=== PATIENT | male | born 1950 | race Caucasian/White ===

== ENCOUNTER 2018-12-16 12:45 | Observation (INO) | payer OTHER ==
[2018-12-16 14:11] LABS: BASO % 0.4 % (0-2.0); EOS % 0.6 % (0-4.5); HEMATOCRIT 42.9 % (35.4-49); HEMOGLOBIN 15.4 GM/dL (11.7-16.9); LYMPH % 34.7 % (8-40); MCH 32.6 pg (25.7-33.7); MCHC 35.9 g/dl (32.0-35.9); MEAN CELL VOLUME 90.8 fl (80-96); MEAN PLT VOLUME 8.4 fl (7.5-11.1); MONO % 7.1 % (3.8-10.2); NEUT % 57.2 % (42.8-82.8); PLATELET COUNT 155 K/MM3 (134-434); RBC 4.72 M/mm3 (4.00-5.60); RDW 12.8 % (11.9-15.9); WHITE BLOOD COUNT 5.2 K/mm3 (4.0-10.0)
[2018-12-16 14:25] LABS: INR 1.01 (0.83-1.09); PROTHROMBIN TIME (PATIENT) 11.9 SEC (9.7-13.0)
[2018-12-16 14:28] LABS: ACTIVATED PTT 33.8 SECONDS (25.2-36.5)
[2018-12-16 14:41] LABS: ALBUMIN 4.1 g/dl (3.4-5.0); ALK PHOS 77 U/L (45-117); ANION GAP 5 MMOL/L (8-16); BILIRUBIN,TOTAL 0.4 mg/dL (0.2-1); BLOOD UREA NITROGEN 13 mg/dL (7-18); CALCIUM 8.5 mg/dL (8.5-10.1); CHLORIDE 106 mmol/L (98-107); CO2 28 mmol/L (21-32); CREATININE 0.8 mg/dL (0.55-1.3); GLUCOSE,RANDOM 96 mg/dL (74-106); N-TERMINAL BNP 35.1 pg/ml (5-125); SGOT/AST 18 U/L (15-37); SGPT/ALT 35 U/L (13-61); SODIUM 139 mmol/L (136-145)
[2018-12-16] MEDS ORDERED: ASPIRIN 81 MG CHEWABLE TABLETS PO ONE (16:16)
--- NOTE | 2018-12-16 16:20 | PDOC ---
Documentation entered by Yisel Rosa SCRIBE, acting as scribe for Leigh Ann Sanders MD. History of Present Illness - General Stated Complaint: LEFT SIDE WEAKNESS / PAIN Time Seen by Provider: 12/16/18 13:22 History Source: Patient Exam Limitations: No Limitations - History of Present Illness Initial Comments: 12/16/18 14:05 The patient is a 67 year old male, with no significant past medical history, who presents to the emergency department for evaluation of lightheadedness. He states he was walking when he developed a sudden sharp pain to his left upper extremity. He states he didnt feel well shortly after developing the arm pain. He denies experiencing chest pain or SOB, but reports feeling dizzy and lightheaded. He states he went to his PCP office in attempt to be evaluated however the doctor was unavailable. He states he started driving to [facility] when he became severely dizzy prompting him to pull his car over. He states he stepped out of the car to call 911 and fainted. He states he landed on his right side and reports some right sided weakness secondary to right shoulder pain. He states a bystander helped him off of the floor. He states there was some speech changes he noticed during the episode, however, states he feels well now. The patient denies chest pain, shortness of breath, headache. The patient denies fever, chills, nausea, vomit, diarrhea and constipation. The patient denies dysuria, frequency, urgency and hematuria. Allergies: NKDA Past surgical history: none reported NIH Stroke Scale - Last Known Well Date/Time & Onset Date Last Known Well: 12/16/18 Time Last Known Well: 07:50 - Initial Evaluation Level of consciousness: Alert Ask patient the month and their age: Answers both correctly Ask patient to open & close eyes; make fist and let go: Obeys both correctly Best gaze (horizontal eye movement): Normal Visual field testing: No visual field loss Facial paresis (Show teeth/raise eyebrows/close eyes tight): Normal symmetrical movement Motor Function: Left Arm: Normal Motor Function: Right Arm: Normal (extends arm 90 (or 45) degrees for 10 seconds without drift Motor Function: Left Leg: Normal (extends leg 30 degrees for 5 seconds without drift) Motor Function: Right Leg: Normal (extends leg 30 degrees for 5 seconds without drift) Limb Ataxia: Present in one limb (left arm dysmetria) Sensory(Use pinprick test arms,legs,trunk,face/side to side): Normal Best language (Describe picture, name items, read sentences): No Aphasia Dysarthria (read several words): Normal articulation Extinction and Inattention: No abnormality - Total Score NIH Stroke Scale Score: 1 Past History - Past Medical History Allergies/Adverse Reactions: Allergies Allergy/AdvReac Type Severity Reaction Status Date / Time No Known Allergies Allergy Verified 12/16/18 13:41 Home Medications: Ambulatory Orders No Home Medications 0 dose .ROUTE UTDICT 07/30/12 Anemia: No Asthma: No Cardiac Disorders: No CVA: No COPD: No Diabetes: No HTN: No Hypercholesterolemia: No - Suicide/Smoking/Psychosocial Hx Smoking Status: No Smoking History: Never smoked Have you smoked in the past 12 months: No Number of Cigarettes Smoked Daily: 0 Information on smoking cessation initiated: No Hx Alcohol Use: No Drug/Substance Use Hx: No Substance Use Type: None Review of Systems - Review of Systems Able to Perform ROS?: Yes Comments:: 12/16/18 14:05 GENERAL/CONSTITUTIONAL: No fever or chills. No weakness. HEAD, EYES, EARS, NOSE AND THROAT: No change in vision. No ear pain or discharge. No sore throat. CARDIOVASCULAR: No chest pain or shortness of breath. RESPIRATORY: No cough, wheezing, or hemoptysis. GASTROINTESTINAL: No nausea, vomiting, diarrhea or constipation. GENITOURINARY: No dysuria, frequency, or change in urination. MUSCULOSKELETAL: (+) right shoulder pain. left arm pain. No joint or muscle swelling. No neck or back pain. SKIN: No rash NEUROLOGIC: (+) dizziness. No headache, loss of consciousness, or change in strength/sensation. ENDOCRINE: No increased thirst. No abnormal weight change. HEMATOLOGIC/LYMPHATIC: No anemia, easy bleeding, or history of blood clots. ALLERGIC/IMMUNOLOGIC: No hives or skin allergy. *Physical Exam - Vital Signs Last Vital Signs Temp Pulse Resp BP Pulse Ox 98.6 F 64 18 159/78 97 12/16/18 13:02 12/16/18 13:02 12/16/18 13:02 12/16/18 13:02 12/16/18 13:02 - Physical Exam Comments: 12/16/18 15:50 awake alert facies symmetric. lungs clear bilaterally heart rrr no mrg abd soft nt nd. ext wwp. head atraumatic. speech clear. alert oriented x 3. pt with 4 +/ 5 right lower ext strength ( pt states limited due to pain in his shoulder when testing. ). same wtih right upper ext 4+/5 ( limited due to shoulder pain) CN II - XII intact. EOMI PERRL. mild tremor with finger to nose left hand. VF intact. NIH stroke scale zero. Moderate Sedation - Procedure Monitoring Vital Signs: Procedure Monitoring Vital Signs Temperature 98.6 F 12/16/18 13:02 Pulse Rate 64 12/16/18 13:02 Respiratory Rate 18 12/16/18 13:02 Blood Pressure 159/78 12/16/18 13:02 O2 Sat by Pulse Oximetry (%) 97 12/16/18 13:02 Heart Score/ECG Review #1 General ECG Interpretation: Sinus Rhythm (54), Normal Intervals, No acute ischemic changes Compared to previous ECG there are: Other 12/16/18 15:23 sinus bradycardia ED Treatment Course - LABORATORY CBC & Chemistry Diagram: 12/16/18 13:51 12/16/18 13:51 - ADDITIONAL ORDERS Additional order review: Laboratory Results 12/16/18 12/16/18 12/16/18 13:51 13:51 13:51 PT with INR 11.90 INR 1.01 PTT (Actin FS) 33.8 Sodium 139 Potassium 4.0 Chloride 106 Carbon Dioxide 28 Anion Gap 5 L BUN 13 Creatinine 0.8 Creat Clearance w eGFR > 60 Random Glucose 96 Calcium 8.5 Total Bilirubin 0.4 AST 18 ALT 35 Alkaline Phosphatase 77 Creatine Kinase 218 Creatine Kinase Index 0.9 CK-MB (CK-2) 2.0 Troponin I 0.08 H B-Natriuretic Peptide 35.1 Total Protein 7.0 Albumin 4.1 12/16/18 13:51 RBC 4.72 MCV 90.8 MCHC 35.9 RDW 12.8 MPV 8.4 Neutrophils % 57.2 Lymphocytes % 34.7 Monocytes % 7.1 Eosinophils % 0.6 Basophils % 0.4 - RADIOLOGY Radiology Studies Ordered: Category Date Time Status HEAD CT WITHOUT CONTRAST [CT] Stat CT Scan 12/16/18 13:53 Completed CHEST X-RAY PORTABLE* [RAD] Stat Radiology 12/16/18 13:52 Taken Radiograph Interpretation: EXAM#: TYPE/EXAM: RESULT: [id number] CT/HEAD CT WITHOUT CONTRAST Cranial CT without contrast CLINICAL INFORMATION: vertigo, syncope, evaluate for CVA No intracranial hemorrhage is seen. There is no discrete infarct within the limitations of CT. No extra-axial fluid collection is noted. There is no obvious mass lesion on noncontrast imaging. The ventricles and cisterns appear unremarkable. IMPRESSION: No CT evidence of acute intracranial pathology. Reported By: Del Ng MD 12/16/18 1446 Medical Decision Making - Medical Decision Making 12/16/18 15:52 67 yo male no pmhx here with c/o left arm pain followed by dizziness, some vertigo, and syncope. landed on side, now c/o right shoudler pain and . denies chest pain or pressure. no back pain. positive LOC. no family h/o cad, no prior stress test. differential CVA unlikley as pt improving. does describe difficulty speaking at time of prior to syncope. tia in differential. dysrhythmia, acs, angina. . plan labs ekg trop ct head. xray shoulder and chest r/o traumatic injury from fall. will admit to telemetry mild trop positive. will d/w dr tapia. 12/16/18 16:49 d/w dr baig, requesting dr cuellar for cardiology. d/w dr cuellar. will admit to telemetry. *DC/Admit/Observation/Transfer Diagnosis at time of Disposition: Syncope - Discharge Dispostion Decision to Admit order: Yes - Referrals - Patient Instructions - Post Discharge Activity Leigh Ann Sanders MD: This documentation has been prepared by the Moe flores Amanda, SCRIBE, under my direction and personally reviewed by me in its entirety. I confirm that the documentation accurately reflects all work, treatment, procedures, and medical decision making performed by me.
[2018-12-16] MEDS ORDERED: ASPIRIN 81 MG CHEWABLE TABLETS ONE (16:42)
--- NOTE | 2018-12-16 21:34 | HP ---
Admitting History and Physical - Primary Care Physician PCP: Laurel Rubin - Admission History of Present Illness: 67 year old male, with no significant past medical history, who presents to the emergency department for evaluation of lightheadedness. He states he was walking when he developed a sudden sharp pain to his left upper extremity. He states he didnt feel well shortly after developing the arm pain. He denies experiencing chest pain or SOB, but reports feeling dizzy and lightheaded. He states he went to his PCP office in attempt to be evaluated however the doctor was unavailable. He states he started driving to [facility] when he became severely dizzy prompting him to pull his car over. He states he stepped out of the car to call 911 and fainted. He states he landed on his right side and reports some right sided weakness secondary to right shoulder pain. He states a bystander helped him off of the floor. He states there was some speech changes he noticed during the episode, however, states he feels well now. T - Smoking History Smoking history: Never smoked Have you smoked in the past 12 months: No Aproximately how many cigarettes per day: 0 - Alcohol/Substance Use Hx Alcohol Use: No Home Medications - Allergies Allergies/Adverse Reactions: Allergies Allergy/AdvReac Type Severity Reaction Status Date / Time No Known Allergies Allergy Verified 12/16/18 13:41 - Home Medications Home Medications: Ambulatory Orders No Home Medications 0 dose .ROUTE UTDICT 07/30/12 Aspirin Coated [Ecotrin -] 81 mg PO DAILY #30 tablet.ec 12/17/18 Review of Systems - Review of Systems Neurological: reports: Dizziness Physical Examination Vital Signs: Vital Signs Temperature 98.1 F 12/16/18 14:08 Pulse Rate 64 12/16/18 14:08 Respiratory Rate 20 12/16/18 14:08 Blood Pressure 168/95 12/16/18 14:08 O2 Sat by Pulse Oximetry (%) 98 12/16/18 14:08 Constitutional: Yes: No Distress HENT: Yes: Atraumatic Neck: Yes: Supple Cardiovascular: Yes: Regular Rate and Rhythm Respiratory: Yes: CTA Bilaterally Gastrointestinal: Yes: Normal Bowel Sounds Extremities: Yes: WNL Edema: No Peripheral Pulses WNL: Yes Neurological: Yes: Alert, Oriented Labs: CBC, BMP 12/16/18 13:51 12/16/18 13:51 Imaging - Results X-ray: Report Reviewed Cat Scan: Report Reviewed Problem List - Problems (1) Syncope Assessment/Plan: tele monitoring echo carotid doppler Code(s): R55 - SYNCOPE AND COLLAPSE Qualifiers: Syncope type: unspecified Qualified Code(s): R55 - Syncope and collapse Assessment/Plan Laboratory Tests 12/16/18 12/16/18 12/16/18 13:51 13:51 13:51 WBC 5.2 RBC 4.72 Hgb 15.4 Hct 42.9 MCV 90.8 MCH 32.6 MCHC 35.9 RDW 12.8 Plt Count 155 MPV 8.4 Absolute Neuts (auto) 3.0 Neutrophils % 57.2 Lymphocytes % 34.7 Monocytes % 7.1 Eosinophils % 0.6 Basophils % 0.4 Nucleated RBC % 0 PT with INR 11.90 INR 1.01 PTT (Actin FS) 33.8 Sodium 139 Potassium 4.0 Chloride 106 Carbon Dioxide 28 Anion Gap 5 L BUN 13 Creatinine 0.8 Creat Clearance w eGFR > 60 Random Glucose 96 Calcium 8.5 Total Bilirubin 0.4 AST 18 ALT 35 Alkaline Phosphatase 77 Creatine Kinase Creatine Kinase Index CK-MB (CK-2) Troponin I B-Natriuretic Peptide 35.1 Total Protein 7.0 Albumin 4.1 12/16/18 13:51 WBC RBC Hgb Hct MCV MCH MCHC RDW Plt Count MPV Absolute Neuts (auto) Neutrophils % Lymphocytes % Monocytes % Eosinophils % Basophils % Nucleated RBC % PT with INR INR PTT (Actin FS) Sodium Potassium Chloride Carbon Dioxide Anion Gap BUN Creatinine Creat Clearance w eGFR Random Glucose Calcium Total Bilirubin AST ALT Alkaline Phosphatase Creatine Kinase 218 Creatine Kinase Index 0.9 CK-MB (CK-2) 2.0 Troponin I 0.08 H B-Natriuretic Peptide Total Protein Albumin Active Medications Generic Name Dose Route Start Last Admin Trade Name Freq PRN Reason Stop Dose Admin Acetaminophen 650 mg 12/16/18 21:36 Tylenol - PO Q6H PRN FEVER Aspirin 81 mg 12/17/18 10:00 12/17/18 11:03 Ecotrin - PO 81 mg DAILY APOLINAR Administration
[2018-12-16] MEDS ORDERED: ACETAMINOPHEN 325 MG TABLET (FP) PO PRN (21:36)
[2018-12-17] MEDS ORDERED: METOCLOPRAMIDE HCL INJECTION 10 MG/2 ML VIAL ONE (00:10)
--- NOTE | 2018-12-17 09:04 | CON.CARD ---
Consult Consult Specialty:: Cardiology Referred by:: Laurel Rubin MD Reason for Consultation:: Syncope - History of Present Illness Chief Complaint: Syncope History of Present Illness: The patient is a 67 year old male, with no significant past medical history, who presents to the emergency department for evaluation of lightheadedness and headache along with sharp pinching pain to his left upper extremity without associated chest pain or SOB, palpitations, diaphoresis, nausea, emesis, orthopnea, PND or LE edema. He experienced syncopal episode stepping out of car , denies recurrence since admission. Allergies: NKDA Past surgical history: none reported - History Source History Provided By: Patient Limitations to Obtaining History: No Limitations - Alcohol/Substance Use Hx Alcohol Use: No - Smoking History Smoking history: Never smoked Have you smoked in the past 12 months: No Aproximately how many cigarettes per day: 0 Home Medications - Allergies Allergies/Adverse Reactions: Allergies Allergy/AdvReac Type Severity Reaction Status Date / Time No Known Allergies Allergy Verified 12/16/18 13:41 - Home Medications Home Medications: Ambulatory Orders No Home Medications 0 dose .ROUTE UTDICT 07/30/12 Review of Systems - Review of Systems Neurological: reports: Dizziness, Headache Vital Signs: Vital Signs Temperature 97.6 F 12/17/18 06:30 Pulse Rate 51 L 12/17/18 06:30 Respiratory Rate 20 12/17/18 06:30 Blood Pressure 139/84 12/17/18 06:30 O2 Sat by Pulse Oximetry (%) 100 12/17/18 03:10 Constitutional: Yes: No Distress, Calm Neck: Yes: Supple Respiratory: Yes: Regular, CTA Bilaterally Gastrointestinal: Yes: Normal Bowel Sounds, Soft Cardiovascular: Yes: Regular Rate and Rhythm JVD: No Carotid Bruit: No Heart Sounds: Yes: S1, S2 Edema: No - Other Data Labs, Other Data: CBC, BMP 12/16/18 13:51 12/16/18 13:51 INR, PTT INR 1.01 (0.83-1.09) 12/16/18 13:51 Troponin, BNP 12/16/18 12/16/18 12/16/18 13:51 13:51 21:53 Troponin I 0.08 H 0.07 H B-Natriuretic Peptide 35.1 Troponin, BNP 12/16/18 12/16/18 12/16/18 13:51 13:51 21:53 Troponin I 0.08 H 0.07 H B-Natriuretic Peptide 35.1 NSR @ 60 nonspec T wave changes Tele: SB Echo: Pending Ejection Fraction %: LVEF > or = 40 % Imaging - Results Chest X-ray: Report Reviewed (NAD) Cat Scan: Report Reviewed ( [id number] CT/HEAD CT WITHOUT CONTRAST Cranial CT without contrast CLINICAL INFORMATION: vertigo, syncope, evaluate for CVA No intracranial hemorrhage is seen. There is no discrete infarct within the limitations of CT. No extra-axial fluid collection is noted. There is no obvious mass lesion on noncontrast imaging. The ventricles and cisterns appear unremarkable. IMPRESSION: No CT evidence of acute intracranial pathology. Reported By: Del gN MD) Ultrasound: Report Reviewed (Carotid US: No stenosis) Problem List - Problems (1) Demand ischemia Code(s): I24.8 - OTHER FORMS OF ACUTE ISCHEMIC HEART DISEASE (2) Syncope Code(s): R55 - SYNCOPE AND COLLAPSE Qualifiers: Syncope type: unspecified Qualified Code(s): R55 - Syncope and collapse Assessment/Plan 1. Syncope 2. Demand ischemia P:1. Trops downtrending, add ASA 81 qd 2. Check orthostatic VS, f/u echo, tele monitor 3. Further CV work-up including stress testing as outpatient 4. Thank you for consultative opportunity
[2018-12-17 09:07] VITALS: BMI 30.4
[2018-12-17] MEDS ORDERED: ASPIRIN COATED 81 MG TABLET.EC PO SCH (10:00)
--- NOTE | 2018-12-17 12:13 | ECHO ---
Name: CHRISTINE, JESSY Exam:Adult Echocardiogram Study Date: 12/17/2018 07:45 AM Age: 67 yrs Reason For Study: syncope Height: 66 in Weight: 195 lb BSA: 2.0 m2 MMode/2D Measurements & Calculations IVSd: 1.0 cm Ao root diam: 3.5 cm LVIDd: 5.4 cm LA dimension: 3.9 cm LVIDs: 3.1 cm ACS: 2.2 cm LVPWd: 0.91 cm IVSs: 1.5 cm LVPWs: 1.5 cm EDV(Teich): 144.2 ml ESV(Teich): 39.3 ml Doppler Measurements & Calculations MV E max marty: 42.4 cm/sec Ao V2 max: 121.2 cm/sec MV A max marty: 73.1 cm/sec Ao max P.9 mmHg MV E/A: 0.58 Ao V2 mean: 87.1 cm/sec Ao mean P.3 mmHg Ao V2 VTI: 27.3 cm MR max marty: 379.2 cm/sec TR max marty: 212.4 cm/sec MR max P.5 mmHg TR max P.1 mmHg Med Peak E' Marty: 4.9 cm/sec Med E/e': 8.7 Lat Peak E' Marty: 5.8 cm/sec Lat E/e': 7.3 Procedure A complete two-dimensional transthoracic echocardiogram was performed (2D, M-mode, Doppler and color flow Doppler). Left Ventricle The left ventricular size, thickness and function are normal. The left ventricular ejection fraction is normal. Ejection Fraction = 60-65%. The left ventricular wall motion is normal. Right Ventricle The right ventricle is normal in size and function. Atria Normal left and right atrial size and function. Mitral Valve There is trace mitral regurgitation. Tricuspid Valve No tricuspid regurgitation. There was insufficient TR detected to calculate RV systolic pressure. Aortic Valve The aortic valve is trileaflet. No hemodynamically significant valvular aortic stenosis. No aortic regurgitation is present. Pulmonic Valve There is no pulmonic valvular regurgitation. Great Vessels The aortic root is normal size. Pericardium/Pleura There is no pericardial effusion. Interpretation Summary The left ventricular size, thickness and function are normal The right ventricle is normal in size and function. There is trace mitral regurgitation. MD Enoch Rand 12/17/2018 12:12 PM
--- NOTE | 2018-12-17 14:03 | EKG ---
Test Reason : Blood Pressure : / mmHG Vent. Rate : 054 BPM Atrial Rate : 054 BPM P-R Int : 170 ms QRS Dur : 082 ms QT Int : 418 ms P-R-T Axes : 024 000 056 degrees QTc Int : 396 ms SINUS BRADYCARDIA NONSPECIFIC T WAVE ABNORMALITY ABNORMAL ECG WHEN COMPARED WITH ECG OF 30-JUL-2012 07:43, NO SIGNIFICANT CHANGE WAS FOUND Confirmed by LADARIUS CORDOBA MD ([id number]) on 12/17/2018 2:02:33 PM Referred By: Confirmed By:LADARIUS CORDOBA MD
--- NOTE | 2018-12-17 16:31 | DS ---
Physical Examination Vital Signs: Vital Signs Temperature 98 F 12/17/18 14:00 Pulse Rate 79 12/17/18 14:35 Respiratory Rate 18 12/17/18 14:00 Blood Pressure 153/85 12/17/18 14:35 O2 Sat by Pulse Oximetry (%) 100 12/17/18 09:18 Constitutional: Yes: No Distress HENT: Yes: Atraumatic Neck: Yes: Supple Cardiovascular: Yes: Regular Rate and Rhythm Respiratory: Yes: CTA Bilaterally Gastrointestinal: Yes: Normal Bowel Sounds Extremities: Yes: WNL Neurological: Yes: Alert, Oriented Labs: CBC, BMP 12/16/18 13:51 12/16/18 13:51 Discharge Summary Reason For Visit: SYNCOPE Current Active Problems Demand ischemia (Acute) Syncope (Acute) - Instructions Referrals: Laurel Rubin MD [Staff Physician] - Omer Echeverria MD [Staff Physician] - - Home Medications Comprehensive Discharge Medication List: Ambulatory Orders No Home Medications 0 dose .ROUTE UTDICT 07/30/12 Aspirin Coated [Ecotrin -] 81 mg PO DAILY #30 tablet.ec 12/17/18 dc home
[2018-12-17 20:01] VITALS: BP 136/87; PULSE 65; TEMP 98
== END 2018-12-17 18:24 | disposition home or self-care (01) ==
LOC: JER 12:45 → INTOOBSV 16:53 → JERBED 16:53 → J4W 12-17 06:06
PROVIDERS: ADMIT Internal Medicine; ATTEND Internal Medicine
DX: R55 Syncope and collapse (principal); I24.8 Other forms of acute ischemic heart disease
CPT/HCPCS: 36415; 70450-TC; 71045-TC-FY; 80053; 82550; 82553; 83880; 84484; 85025; 85610; 85730; 93005; 93010; 93306-TC; 93880-TC; 99285-25; G0378